=== PATIENT | female | born 1975 | race Caucasian/White ===

== ENCOUNTER → 2020-04-22 | Outpatient (CLI) | payer MEDICAID, OTHER | END | disposition home or self-care (01) | LOC: PF 11:40 | PROVIDERS: ATTEND Internal Medicine Rheumatology | DX: J40 Bronchitis, not specified as acute or chronic (principal); R06.02 Shortness of breath | CPT/HCPCS: 94010; 94727; 94729 ==

== ENCOUNTER → 2020-10-17 | Outpatient (CLI) | payer OTHER | END | disposition home or self-care (01) | LOC: PF 11:59 | PROVIDERS: ATTEND Internal Medicine Rheumatology | DX: F11.10 Opioid abuse, uncomplicated (principal) | CPT/HCPCS: 94010; 94727; 94729 ==

== ENCOUNTER → 2021-04-28 | Outpatient (CLI) | payer OTHER | END | disposition home or self-care (01) | LOC: LAB 09:59 | PROVIDERS: ATTEND Internal Medicine Rheumatology | DX: J45.909 Unspecified asthma, uncomplicated (principal); J84.9 Interstitial pulmonary disease, unspecified | CPT/HCPCS: 87426 ==

== ENCOUNTER → 2021-05-26 | Outpatient (CLI) | payer OTHER | END | disposition home or self-care (01) | LOC: PF 10:19 → EDSTATUS 10:40 | PROVIDERS: ATTEND Internal Medicine Rheumatology | DX: Z20.822 Contact with and (suspected) exposure to COVID-19 (principal) | CPT/HCPCS: 87426; 94010; 94727; 94729 ==